=== PATIENT | male | born 1995 | race African-American/Black ===

== ENCOUNTER 2019-08-09 12:57 | Emergency (ER) | payer SELFPAY ==
[~2019-08-09] VITALS: Ht 195.6 cm; Wt 127.0 kg
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
[2019-08-09] MEDS ORDERED: Ketorolac 60mg Inj IM ONE (15:30)
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
[2019-08-09] MEDS ORDERED: CYCLOBENZAPRINE10 MG ORAL (16:46)
[2019-08-09] MEDS ORDERED: NORCO 5-325 TA1 EACH ORAL (16:46)
[2019-08-09] MEDS ORDERED: IBUPROFEN800 MG ORAL (16:46)
[2019-08-09 17:20] VITALS: BP 110/68
--- NOTE | 2019-08-09 17:20 | NUR ---
ED Nurse Note: Pt cleared by health care Provider for discharge. DC instructions/prescription was given and explained to pt and verbalized understanding of teachings. All medical deviecs such as ID band removed. Pt is AAO x4, ambulatory and left with all personal belongings.
== END 2019-08-09 17:20 | disposition home or self-care (01) ==
LOC: EMR 16:40
DX: S13.4XXA Sprain of ligaments of cervical spine, initial encounter (principal); S29.012A Strain of muscle and tendon of back wall of thorax, initial encounter; S39.012A Strain of muscle, fascia and tendon of lower back, initial encounter; V43.52XA Car driver injured in collision with other type car in traffic accident, initial encounter; Y92.411 Interstate highway as the place of occurrence of the external cause
CPT/HCPCS: 96372; 99283